=== PATIENT | female | born 1995 | race Caucasian/White ===

== ENCOUNTER 2018-05-27 19:15 | Emergency (ER) | payer OTHER, SELFPAY ==
[2018-05-27 19:44] VITALS: BP 115/73; PULSE 82; RESP 14; TEMP 36.5; O2SAT 99; BMI 23.3
[2018-05-27 20:10] VITALS: BP 115/73; PULSE 82; RESP 14; TEMP 36.5; O2SAT 99; BMI 23.3
--- NOTE | 2018-05-27 20:21 | ED_ITS ---
HPI - Dizziness General Chief Complaint: Dizziness Stated Complaint: DIZZY, VOMITING Time Seen by Provider: 05/27/18 19:49 Source: patient Mode of arrival: ambulatory Limitations: no limitations History of Present Illness HPI Narrative: Patient is a 22-year-old female to male transgender patient presenting with dizziness. He states that he was at work when it suddenly came on he was extremely dizzy he then got nauseous and vomited at least 5 times. He went home and slept for a number of hours woke up and then felt normal. The dizziness was got still feeling slightly nauseated but able to tolerate food and oral fluids. He has had a minor headache which started last night which is not atypical for him. He took some Tylenol which did not seem to help. He feels like the headache is improved as well. MD complaint: dizziness Related Data Allergies Allergy/AdvReac Type Severity Reaction Status Date / Time No Known Drug Allergies Allergy Verified 05/27/18 19:44 Review of Systems Review of Systems GENERAL: Denies chills, fatigue, malaise, fever, sweats, travel HEENT: Denies sinus pain, ear pain, sore throat, difficulty swallowing, neck pain RESPIRATORY: Denies dyspnea, cough, wheezing, hemoptysis, sputum. CARDIOVASCULAR: Denies chest pain, palpitations, orthopnea, edema GASTROINTESTINAL: Denies nausea, vomiting, abdominal pain, diarrhea, constipation, melena. : Denies dysuria, frequency, incontinence, hematuria, urinary retention, flank pain. MUSCULOSKELETAL: Denies weakness, joint pain, or bony pain SKIN: No rash, no erythema, no pruritus NEUROLOGIC: Denies weakness, dizziness, headache, numbness, change in speech, confusion PSYCHIATRIC: No concerning psychosocial issues. 12 point review of systems is negative except for those stated above and HPI PFSH Medical History [id number] transgender person (Acute) Hearing deficit (Acute) Pulmonary stenosis (Acute) Social History Smoking Status: Never smoker Social History Smoking Status: Never smoker Comment: Propranolol sertraline testosterone Exam Initial Vital Signs Initial Vital Signs: Vital Signs Temperature 97.7 F 05/27/18 19:44 Pulse Rate 82 05/27/18 19:44 Respiratory Rate 14 05/27/18 19:44 Blood Pressure 115/73 05/27/18 19:44 Pulse Oximetry 99 05/27/18 19:44 GENERAL: sitting up well-appearing in no acute distress HEENT: Head atraumatic,EOMI, pupils reactive, CARDIOVASCULAR: Regular rate and rhythm systolic murmur 5/6 RESPIRATORY: Breath sounds equal bilaterally, no wheezes rales or rhonchi. ABDOMEN: Soft, nontender. Normoactive bowel sounds all 4 quadrants. No guarding or rebound.s EXTREMITIES: Normal range of motion, no clubbing or edema. Neurovascularly i ntact NEUROLOGICAL: Alert and oriented x4.Normal gait and speech. SKIN: Warm, dry, no laceration, no petechiae, no rashes or lesions. Course Vital Signs - 8 hr 05/27/18 19:44 05/27/18 20:10 05/27/18 20:29 Temperature 97.7 F 97.7 F Pulse Rate 82 82 80 Respiratory Rate 14 14 15 Blood Pressure 115/73 115/73 115/73 Pulse Oximetry 99 99 100 MDM - Dizziness MDM Narrative Medical decision making narrative: patient had symptoms earlier which have now completely resolved. He does have a history of vertigo typically does not have vomiting. However the vomiting has stopped no longer nauseated. Has a tolerating oral fluids. Patient is offered Zofran if still nauseated however he declines. His no longer feels dizzy. At this time no need for blood work or imaging. Patient feels ready and able to go home. patient is requesting a work note. I have considered several life threatening etiologies for the patients Dizziness such as benign paroxysmal positional vertigo, Meniere's disease, and this patients presentation is not consistent with such entities and therefore , no further testing was warranted. Discharge Plan Departure Patient Disposition: Home Clinical Impression: Vertigo Discharge Date/Time: 05/27/18 20:22 Interventions: ED Discharge Assessment Last Done: 05/27/18 20:29 Instructions: DI for Vertigo Activity Restrictions/Additional Instructions: *You have been diagnosed with vertigo now resolved *What to do: continue with hydration and pain control for headache *Continue to take medications as directed *Follow up with your primary care provider in 2-3 days *Return to ER if you should have persistent dizziness and vomiting or any new, worsening or concerning symptoms Stand Alone Forms: Work Release Note
[2018-05-27 20:29] VITALS: BP 115/73; PULSE 80; RESP 15; O2SAT 100
== END 2018-05-27 20:22 | disposition home or self-care (01) ==
PROVIDERS: Emergency Provider Emergency Medicine
DX: R42 Dizziness and giddiness (principal)
CPT/HCPCS: 99282

== ENCOUNTER → 2018-10-02 15:20 | Outpatient (CLI) | payer OTHER, SELFPAY ==
[2018-10-02 15:55] LABS: Hematocrit 45.5 % (36-46); Hemoglobin 15.7 g/dL (12.0-16.0)
[2018-10-02 16:02] LABS: Cholesterol 181 mg/dL (140-199); HDL Cholesterol 28 mg/dL (40-60); LDL Cholesterol Calculated 112 mg/dL (<100); Triglycerides 204 mg/dL (35-150)
[2018-10-02 16:37] LABS: Ferritin 64.4 ng/mL (6.27-137)
[2018-10-02 16:51] LABS: Vitamin B12 199 pg/mL (239-931)
[2018-10-02 17:40] LABS: Estradiol, Total 27.3 pg/mL
== END ==
PROVIDERS: PCP Physician Assistant Medical; Visit Provider Internal Medicine Endocrinology, Diabetes & Metabolism
DX: F64.0 Transsexualism (principal); D64.9 Anemia, unspecified; E61.1 Iron deficiency
CPT/HCPCS: 36415; 80061; 82607; 82670; 82728; 84403; 85014; 85018

== ENCOUNTER → 2020-07-05 11:28 | Outpatient (CLI) | payer OTHER, SELFPAY ==
[2020-07-05 12:07] LABS: COVID19 -Nasal RAPID Negative (Negative)
== END ==
PROVIDERS: PCP Physician Assistant Medical; Visit Provider Student in an Organized Health Care Education/Training Program
DX: Z20.822 Contact with and (suspected) exposure to COVID-19 (principal)
CPT/HCPCS: 87635

== ENCOUNTER 2021-12-26 08:30 | Outpatient (RCR) | payer OTHER, SELFPAY | END 2021-12-26 10:30 | LOC: CAR 08:30 | PROVIDERS: PCP Physician Assistant Medical; Referring Provider Student in an Organized Health Care Education/Training Program; Visit Provider Student in an Organized Health Care Education/Training Program | DX: Z95.2 Presence of prosthetic heart valve (principal) | CPT/HCPCS: 93798 ==